=== PATIENT | female | born 1965 | race Caucasian/White ===

== ENCOUNTER → 2020-03-26 | Outpatient (CLI) | payer OTHER | LOC: LAB 10:27 | PROVIDERS: ATTEND Family Medicine | DX: U07.1 COVID-19 (principal) ==

== ENCOUNTER → 2020-04-08 | Outpatient (CLI) | payer OTHER | LOC: LAB 04-07 09:16 | PROVIDERS: ATTEND Family Medicine | DX: U07.1 COVID-19 (principal) ==

== ENCOUNTER → 2020-08-05 | Outpatient (CLI) | payer OTHER | LOC: SJCVCIMAG 11:02 | PROVIDERS: ATTEND Nuclear Medicine Nuclear Cardiology | DX: M79.604 Pain in right leg (principal); M79.605 Pain in left leg; M79.89 Other specified soft tissue disorders; I87.2 Venous insufficiency (chronic) (peripheral); Z79.899 Other long term (current) drug therapy; Z98.890 Other specified postprocedural states; Z87.891 Personal history of nicotine dependence ==

== ENCOUNTER → 2020-08-12 | Outpatient (CLI) | payer OTHER ==
[~2020-08-12] VITALS: Ht 154.9 cm; Wt 83.0 kg
[~2020-08-12] MED LIST: OMEPRAZOLE40 MG PO; TOPROL XL25 MG PO; ZYRTEC10 MG PO
[2020-08-12 09:30] VITALS: BP 119/41
[2020-08-12 09:45] LABS: HEMATOCRIT 36.7 % (37.0-47.0); HEMOGLOBIN 11.9 gm/dL (12.0-15.0); MCH 26.5 pg (26.0-34.0); MCHC 32.5 g/dL (28.0-37.0); MCV 81.4 fL (80.0-100.0); RBC 4.51 mil/uL (4.20-5.00); RDW 16.1 % (10.5-14.5)
[2020-08-12 09:52] LABS: CREATININE 0.7 mg/dL (0.6-1.0); POTASSIUM 4.2 mmol/L (3.5-5.1)
== END | disposition home or self-care (01) ==
LOC: CATH 08:32
PROVIDERS: ATTEND Nuclear Medicine Nuclear Cardiology
DX: I87.1 Compression of vein (principal); I87.323 Chronic venous hypertension (idiopathic) with inflammation of bilateral lower extremity; M79.604 Pain in right leg; M79.605 Pain in left leg; I73.9 Peripheral vascular disease, unspecified; K21.9 Gastro-esophageal reflux disease without esophagitis; Z98.890 Other specified postprocedural states; Z79.899 Other long term (current) drug therapy; Z20.822 Contact with and (suspected) exposure to COVID-19; Z82.49 Family history of ischemic heart disease and other diseases of the circulatory system; Z87.891 Personal history of nicotine dependence

== ENCOUNTER → 2020-08-16 | Outpatient (CLI) | payer OTHER | LOC: SJCVCIMAG 09:39 | PROVIDERS: ATTEND Internal Medicine Cardiovascular Disease | DX: I08.1 Rheumatic disorders of both mitral and tricuspid valves (principal); R00.0 Tachycardia, unspecified ==